=== PATIENT | male | born 1960 | race African-American/Black ===

== ENCOUNTER 2020-10-28 21:53 | Emergency (ER) | payer SELFPAY ==
[~2020-10-28] VITALS: Ht 170.2 cm; Wt 86.8 kg
[2020-10-28 22:30] VITALS: BP 150/93
[2020-10-28] MEDS ORDERED: IBUPROFEN 600MG TABLET PO ONE (22:30)
[2020-10-28] MEDS ORDERED: IBUP-2029 MT (22:53)
== END 2020-10-28 23:03 | disposition home or self-care (01) ==
LOC: ER 21:53
DX: M54.6 Pain in thoracic spine (principal); R03.0 Elevated blood-pressure reading, without diagnosis of hypertension; V49.49XA Driver injured in collision with other motor vehicles in traffic accident, initial encounter; Y93.89 Activity, other specified; Y92.488 Other paved roadways as the place of occurrence of the external cause
CPT/HCPCS: 99282